=== PATIENT | female | born 1965 | race Caucasian/White ===

== ENCOUNTER 2020-04-13 15:53 | Emergency (ER) | payer SELFPAY ==
[~2020-04-13] VITALS: Ht 170.2 cm; Wt 104.3 kg
[2020-04-13 15:55] VITALS: Ht 170.2 cm; Wt 104.3 kg
[2020-04-13 17:05] VITALS: BP 155/71
== END 2020-04-13 17:05 | disposition other institution (70) ==
LOC: ED 15:53
DX: S00.12XA Contusion of left eyelid and periocular area, initial encounter (principal); S30.0XXA Contusion of lower back and pelvis, initial encounter; M54.2 Cervicalgia; M25.511 Pain in right shoulder; M25.512 Pain in left shoulder; Y04.0XXA Assault by unarmed brawl or fight, initial encounter; Y93.89 Activity, other specified; Y92.89 Other specified places as the place of occurrence of the external cause; Y99.8 Other external cause status

== ENCOUNTER 2020-04-13 15:53 | Emergency (ER) | payer OTHER | END 2020-04-13 17:05 | disposition other institution (70) | LOC: ED 15:53 | DX: Z02.89 Encounter for other administrative examinations (principal) ==